=== PATIENT | female | born 1975 | race Caucasian/White ===

== ENCOUNTER 2022-09-20 05:38 | Emergency (ER) | payer OTHER ==
[~2022-09-20] VITALS: Ht 149.9 cm; Wt 56.4 kg
[2022-09-20 07:43] VITALS: BP 110/80
[2022-09-20] MEDS ORDERED: ACETAMINOPHEN/CODEINE#3 (300/30mg) TAB PO ONE (08:00)
[2022-09-20] MEDS ORDERED: IBU600T PO (08:16)
== END 2022-09-20 10:52 | disposition home or self-care (01) ==
LOC: ER 05:38
DX: S82.831A Other fracture of upper and lower end of right fibula, initial encounter for closed fracture (principal); S82.201A Unspecified fracture of shaft of right tibia, initial encounter for closed fracture; W01.0XXA Fall on same level from slipping, tripping and stumbling without subsequent striking against object, initial encounter; Y93.89 Activity, other specified; Y92.89 Other specified places as the place of occurrence of the external cause; Y99.8 Other external cause status
CPT/HCPCS: 29515; 73590